=== PATIENT | male | born 1945 | race Caucasian/White ===

== ENCOUNTER 2022-11-30 11:40 | Emergency (ER) | payer MEDICARE ==
[2022-11-30] VITALS (10 sets, daily range): BP systolic 162–196; BP diastolic 85–102
[~2022-11-30] VITALS: Ht 175.3 cm; Wt 55.0 kg
[~2022-11-30 11:40] MED LIST: AMOXICILLIN/CL875 MG PO; CARAFATE1 GM PO; DOXYCYCL HYC100 MG PO; DUONEB IN; FLOMAX0.4 M1 PO; FLONASE0.05 %; INFANRIX IM; LISINOPRIL20 M1 PO; PRILOSEC20 MG PO; PROAIR HFA IN; SG ASA LOW81 M1 PO; SINGULAIR PO; SPIRIVA HANDIHALER IN
[2022-11-30 13:06] LABS: BASO% 0.4 % (0-3); EOS% 0.9 % (0-8); HEMOGLOBIN 14.2 g/dl (14.0-18.0); IMMATURE GRANULOCYTES 0.2 % (0.0-5.0); LYMPH% 19.5 % (15-41); MEAN CELL VOLUME 91.9 fL CALC (80.0-100.0); MEAN CORPUSCULAR HGB 31.1 pG CALC (26.0-32.0); MEAN CORPUSCULAR HGB CONC 33.8 g/dL CAL (32.0-36.0); MONO% 7.6 % (2-13); NEUT# 3.19 thou/uL (1.82-7.42); NEUT% 71.4 % (42-76); RED BLOOD COUNT 4.57 mill/uL (4.70-6.10); RED CELL DISTRI WIDTH 13.2 % (11.5-15.5)
[2022-11-30 13:12] LABS: ALBUMIN 4.9 g/dL (3.2-5.0); BILIRUBIN, TOTAL 0.6 mg/dL (0.2-1.3); BUN 14 mg/dL (8-23); BUN/CREATININE RATIO 22 (12-20 (CALC)); CARBON DIOXIDE 26 mmol/l (22-30); CHLORIDE 93 mmol/l (95-108); CREATININE 0.6 mg/dL (0.7-1.3); GFR FOR AFR.AMER. > 60 ML/MIN (>=60 (CALC)); GFR OTHER RACES > 60 ML/MIN (>=60 (CALC)); POTASSIUM 4.9 mmol/l (3.5-5.1); SGOT/AST 35 u/l (19-48); TOTAL PROTEIN 7.1 g/dL (6.3-8.2)
[2022-11-30 13:21] LABS: ALKALINE PHOSPHATASE 76 u/l (38-126); ANION GAP 13 (6-22 (CALC)); SODIUM 127 mmol/l (137-146)
[2022-11-30 14:38] LABS: URINE BILIRUBIN - DIPSTICK NEGATIVE (NEGATIVE); URINE BLOOD DIPSTICK NEGATIVE (NEGATIVE); URINE COLOR YELLOW; URINE GLUCOSE - DIPSTICK NEGATIVE (NEGATIVE); URINE KETONE NEGATIVE (NEGATIVE); URINE LEUK ESTERASE NEGATIVE (NEGATIVE); URINE PH 7.5 (4.5-8.0); URINE PROTEIN - DIPSTICK NEGATIVE (NEG-TRACE); URINE SPECIFIC GRAVITY 1.015; URINE UROBILINOGEN - DIPSTICK 0.2 E.U./dL (0.2)
[2022-11-30 14:41] LABS: URINE NITRITE - DIPSTICK NEGATIVE (Negative)
== END 2022-11-30 16:07 | disposition home or self-care (01) ==
LOC: ED 11:40
PROVIDERS: Nurse Practitioner
DX: R53.1 Weakness (principal); E87.1 Hypo-osmolality and hyponatremia

== ENCOUNTER 2023-02-24 11:49 | Emergency (ER) | payer MEDICARE ==
[~2023-02-24] VITALS: Ht 175.3 cm; Wt 65.8 kg
[2023-02-24 11:58] VITALS: BP 155/78
[2023-02-24 12:00] VITALS: BP 136/79
[2023-02-24] MEDS ORDERED: ALLERGY RE50 MCG/ACT (12:07)
[2023-02-24] MEDS ORDERED: VITAMIN D PO (12:08)
[2023-02-24] MEDS ORDERED: LOVASTATIN10 M1 PO (12:09)
[2023-02-24] MEDS ORDERED: PEPCID20 MG PO (12:09)
[2023-02-24 12:15] VITALS: BP 145/83
[2023-02-24] MEDS ORDERED: FLOXIN OTIC0.3 % AS (12:20)
[2023-02-24] MEDS ORDERED: AMOX/K CLAV875 M1 PO (12:20)
[2023-02-24 12:23] VITALS: BP 145/83
== END 2023-02-24 12:25 | disposition home or self-care (01) ==
LOC: ED 11:49
DX: H66.92 Otitis media, unspecified, left ear (principal); H72.92 Unspecified perforation of tympanic membrane, left ear; I10 Essential (primary) hypertension; J45.909 Unspecified asthma, uncomplicated